=== PATIENT | male | born 1945 ===

== ENCOUNTER 2019-02-09 20:21 | Emergency (ER) | payer MEDICARE ==
[2019-02-09 20:37] VITALS: BMI 20.1
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
[2019-02-10 00:44] VITALS: BP 110/74; RESP 16
[2019-02-10 04:09] VITALS: PULSE 62; TEMP 98; O2SAT 98
--- NOTE | 2019-02-10 10:50 | CT ---
Date of service: 02/09/2019 PROCEDURE: CT HEAD WITHOUT CONTRAST. HISTORY: Trauma COMPARISON: No prior study available comparison TECHNIQUE: Axial computed tomography images were obtained through the head/brain without intravenous contrast. Radiation dose: Total exam DLP = 885.21 mGy-cm. This CT exam was performed using one or more of the following dose reduction techniques: Automated exposure control, adjustment of the mA and/or kV according to patient size, and/or use of iterative reconstruction technique. FINDINGS: HEMORRHAGE: No acute parenchymal, subarachnoid or extra-axial hemorrhage. BRAIN: Moderate chronic periventricular white matter ischemic changes seen extending peripherally into the deep and subcortical regions bilaterally. There is also some extension of these changes into the white matter tracts of both basal nuclei Moderate generalized volume loss. Dense vascular calcifications both carotid siphons VENTRICLES: No obstructive hydrocephalus. CALVARIUM: Calvarium intact. Mild localized right lateral periorbital soft tissue swelling extending superiorly into the frontotemporal region. There is also mild left superior parasagittal frontal scalp swelling. PARANASAL SINUSES: Unremarkable as visualized. No significant inflammatory changes. MASTOID AIR CELLS: Unremarkable as visualized. No inflammatory changes. OTHER FINDINGS: Changes of bilateral cataract surgery IMPRESSION: No acute intracranial hemorrhage.. Moderate chronic white matter ischemic changes. There is also extension of these changes into the white matter tracts of both basal ganglia. Moderate generalized volume loss Localized scalp swelling seen in the left parasagittal superior frontal region as well as right lateral periorbital and frontal lesions.
== END 2019-02-10 05:00 | disposition home or self-care (01) ==
LOC: C.ER 20:21
DX: S01.112A Laceration without foreign body of left eyelid and periocular area, initial encounter (principal); V18.0XXA Pedal cycle driver injured in noncollision transport accident in nontraffic accident, initial encounter; Y93.55 Activity, bike riding; F10.129 Alcohol abuse with intoxication, unspecified; Y90.9 Presence of alcohol in blood, level not specified
CPT/HCPCS: 70450; 82948; 96372; 99285; J2060